=== PATIENT | male | born 1950 | race Caucasian/White ===

== ENCOUNTER 2021-05-12 20:11 | Observation (INO) | payer MEDICARE, SELFPAY ==
--- NOTE | ~2021-05-12 | US_ITS ---
EXAMINATION:US venous doppler LE BI INDICATION:Elevated d-dimer TECHNIQUE: Multiple grayscale, color flow and Doppler images of the right and left lower extremity de ep venous systems were obtained and reviewed. COMPARISON:No prior studies for comparison. FINDINGS: The common femoral, superficial femoral and popliteal veins demonstrate normal respiratory variation, augmentation and compressibility. Color flow is also seen within the posterior tibial, pe roneal, greater saphenous and profunda veins. IMPRESSION: 1: No lower extremity deep venous thrombosis. Reviewed, dictated and finalized at location A.
--- NOTE | ~2021-05-12 | CT_ITS ---
EXAMINATION: CT chest abdomen pelvis wo con EXAM DATE: 05/12/2021 23:03 INDICATION: Chest and abdominal pain, h/o IVP dye anaphylaxis. Shortness of breath, mid abdominal ten derness. TECHNIQUE: Spiral CT of the chest, abdomen and pelvis was performed without contrast. Axial, pabon l and sagittal images chest, abdomen and pelvis were reviewed. Coronal maximum intensity pixel image s of chest reviewed. The dose-length product (DLP) for this examination was 1754.69 mGy-cm. The exp osure was tailored according to patient size (auto mA exposure control), and iterative reconstruction (ASIR) was used as additional dose reduction technique. There is no prior study for comparison. FINDINGS: CHEST: Dependent right lower lobe groundglass opacity, subsegmental atelectasis. There are no pleur al or pericardial effusions. Tracheobronchial tree is patent. There is no mediastinal, hilar or a xillary lymphadenopathy. There is no pneumothorax. Heart normal in size. There is moderate radha nary arterial calcification, arterial sclerosis. ABDOMEN PELVIS: The liver, spleen, adrenal glands and pancreas are unremarkable. Gallbladder is unre markable. No biliary obstruction. There is punctate right mid calyceal stone. No hydronephrosis. T he prostate is unremarkable. The bladder is unremarkable. There is no retroperitoneal or pelvic lym phadenopathy. There is mild scattered arteriosclerotic disease. Small bilateral inguinal fat-contai chris hernias. The appendix is normal. There is moderate sigmoid diverticulosis, mild inflammation adjacent to one o f these with some focal wall thickening, likely mild uncomplicated acute diverticulitis. Although fin dings are more likely acute diverticulitis, inflammatory cancer can have a similar appearance. Theref ore recommend treating patient for acute diverticulitis and then obtaining a 2-4 week followup abdome n pelvis CT. Alternatively, if patient has not had recent colonoscopy, followup colonoscopy could be considered following treatment. The stomach and small bowel are unremarkable. There is expected amount of colonic stool. No free i ntraperitoneal gas. There are no osteoblastic or osteolytic lesions identified. IMPRESSION: 1. Focal region mild sigmoid inflammation more likely uncomplicated diverticulitis than inflammatory adenocarcinoma. Follow-up recommendation after treatment above. 2. Punctate right nephrolithiasis. 3. Small inguinal hernias. 4. Subsegmental atelectasis. Reviewed, dictated and finalized at location A. IMPRESSION: 1. Focal region mild sigmoid inflammation more likely uncomplicated diverticul itis than inflammatory adenocarcinoma. Follow-up recommendation after treatment above. 2. Punctate right nephrolithiasis. 3. Small inguinal hernias. 4. Subsegmental atelectasis.
--- NOTE | ~2021-05-12 | XR_ITS ---
XR chest 1V portable DATE: 05/14/2021 16:05 INDICATION: Chest pain, pressure, radiating to neck TECHNIQUE: Portable upright AP chest on 05/14/2021 at 1612 hours COMPARISON: 05/12/2021 CT chest abdomen pelvis 05/12/2021 2 view chest FINDINGS: Prominent calcified lower right paratracheal lymph nodes. Normal heart size. No hilar or mediastinal enlargement. Mild aortic unfolding. No pulmonary infiltrate or consolidation, pleural effusion or pulmonary vascular congestion or pneumo thorax. Resection of the lateral aspect of left clavicle. Osteopenia. IMPRESSION: No active cardiopulmonary disease Reviewed, dictated and finalized at location A.
--- NOTE | ~2021-05-12 | XR_ITS ---
EXAMINATION: XR chest 2V DATE: 05/12/2021 21:19 INDICATION: Midsternal chest pain TECHNIQUE: PA and lateral views of the chest were obtained. COMPARISON: None FINDINGS: Minimal linear discoid atelectasis at the lingula. No other airspace opacities, pulmonary edema, pleu ral effusion or pneumothorax. The cardiomediastinal silhouette is normal. Large calcified right parat sofia lymph node consistent with old granulomatous disease. Mild thoracic spondylosis. IMPRESSION: 1. Minimal discoid atelectasis at the lingula. No acute cardiopulmonary disease. Reviewed, dictated and finalized at location A. IMPRESSION: 1. Minimal discoid atelectasis at the lingula. No acute cardiopulmonary disease .
--- NOTE | ~2021-05-12 | NM_ITS ---
EXAMINATION: NM pulmonary perfusion DATE: 05/14/2021 13:41 INDICATION: Shortness of breath. Elevated d-dimer. TECHNIQUE: 4.77 mCi Tc-99m MAA was administered IV. Scintigraphic images of the chest were obtained. COMPARISON: None. FINDINGS: There is relatively homogeneous perfusion throughout the lungs. Photopenic defect at the right side o f the superior mediastinum resulting from a densely calcified right paratracheal lymph node consisten t with old granulomatous disease. No no other perfusion defects identified. IMPRESSION: 1. Low probability for pulmonary embolism. Reviewed, dictated and finalized at location A.
--- NOTE | 2021-05-12 20:35 | ECG_ITS ---
Measurements Intervals [place] Rate: 99 P: 21 PA: 177 QRS: 28 QRSD: 101 T: 16 QT: 338 QTc: 434 Interpretive Statements SINUS RHYTHM BASELINE ARTIFACT- I, II, III, AVR, AVL, V3 NORMAL ECG Electronically Signed On 05-13-2021 10:14:36 CDT by Willem Kenny D.O.
--- NOTE | 2021-05-12 20:45 | ED.CHESTPAIN ---
HPI - Chest Pain General Stated Complaint: Chest pain light headed Time Seen by Provider: 05/12/21 20:40 Source: patient and family Mode of arrival: ambulatory Limitations: other (Deaf. 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 communicated with sign lang with spouse who translated.) History of Present Illness HPI narrative: 70-year-old man comes in today complaining of chest pressure and difficulty catching his breath since 4:00 a.m. this afternoon. States that it started after taking some CBD that he bought at a gas station. He denies cough or cold symptoms, ankle swelling, vomiting, radiating pain, and syncope. MD complaint: chest pain
[2021-05-12 21:00] VITALS: BP 131/84; PULSE 97; RESP 20; TEMP 38.3; O2SAT 97
[2021-05-12 21:10] VITALS: PULSE 99
--- NOTE | 2021-05-12 21:11 | ED.CHESTPAIN ---
HPI - Chest Pain General Chief Complaint: Shortness of Breath/Dyspnea Stated Complaint: Chest pain light headed Time Seen by Provider: 05/12/21 21:22 Source: patient Mode of arrival: ambulatory Limitations: no limitations History of Present Illness HPI narrative: 70-year-old man comes in today complaining of 3 days of fever, vomiting, abdominal pain and chest pain with shortness of breath. He states that the abdominal pain has been constant and he has been and able to eat well. He denies diarrhea and denies sick contacts. He has had no cough or cold symptoms. Patient states that he has had intermittent chest pain over last 3 days and that he has chest pain quite often. States that he had episodes of chest pain 20 years ago for which he had a stress test. He denies calf pain and swelling, and has been having dizziness and lightheadedness. He is currently traveling the country with his dog. MD complaint: chest pain Onset (ago): day(s) (> 3 days) Timing of current episode: episodic and still present Prior episodes: Yes Onset: during rest and during exertion Pain location: substernal Pain radiation: none Severity: moderate Pain scale (0-10): 4 Quality: tightness Relieving factors: nothing Exacerbating factors: nothing Context: recent travel Associated symptoms: nausea, vomiting, dyspnea and fever Treatment prior to arrival: none Risk Factors Coronary artery disease risk factors: hyperlipidemia Related Data Home Medications Medication Instructions Recorded Confirmed eszopiclone 3 mg PO HS 05/12/21 05/12/21 simvastatin 20 mg PO DAILY 05/12/21 05/12/21 trazodone 75 mg PO DAILY 05/12/21 05/12/21 Allergies Allergy/AdvReac Type Severity Reaction Status Date / Time bee venom protein (honey bee) AdvReac Itching Verified 05/12/21 21:19 [bees] iv contrast Allergy Unknown Uncoded 05/12/21 21:19 Review of Systems Constitutional: Constitutional: Denies chills, Reports fatigue and Reports fever(s) Eyes: Eyes: Denies change in vision and Denies photophobia ENT: Denies dysphagia, Denies nasal congestion and Denies sore throat Cardiovascular: Cardiovascular: Reports chest pain and Denies radiating jaw, neck or arm pain Respiratory: Respiratory: Denies cough and Reports dyspnea Gastrointestinal: Gastrointestinal: Reports abdominal pain, Denies diarrhea, Reports nausea and Reports vomiting Genitourinary: Genitourinary: Denies hematuria, Denies dysuria and Denies urinary frequency Musculoskeletal: Musculoskeletal: Denies arthralgias and Denies joint swelling Integumentary/Breasts: Skin/Breast: Denies pruritus, Denies erythema and Denies rash Neurologic: Denies vertigo, Reports dizziness and Denies syncope Allergic/Immunologic: Allergic/Immunologic: Denies lip swelling and Denies throat swelling PMFSH Past Medical History Medical History (Updated 05/13/21 @ 00:27 by Trace Stephenson MD) Hyperlipidemia Insomnia Social History Social History (Updated 05/13/21 @ 00:22 by Trace Stephenson MD) Smoking status: Former smoker Alcohol intake: current Alcohol use details: occasional Substance use: never Living arrangements: alone Exam Const: General: healthy appearing, no acute distress and alert Orientation/consciousness: patient oriented x3 Limitations: no limitations HENMT: Head: normal to inspection Ears: external ears normal General nose exam: Normal nares present Face and sinus: normal facial exam Mouth: Yes moist mucous membranes Throat: posterior oropharynx normal Eyes: Conjunctivae: conjunctivae normal Pupils: Equal, round and reactive pupils present Neck: Neck: normal visual inspection and no lymphadenopathy Resp: Effort & Inspection: normal respiratory effort and not labored Auscultation: clear to auscultation bilaterally, no rales, no rhonchi and no wheezes Cardio: Rate: regular rate Rhythm: regular rhythm Heart sounds: no murmurs GI: GI Palp: Yes Soft to palpation
[2021-05-12] MEDS: ASPIRIN 81 MG CHEWABLE TABLET 324 MG PO (21:45)
[2021-05-12] MEDS: MAG HYDROX/ALUMINUM HYD/SIMETH 30 ML, PHENobarb/HYOSCY/ATROPINE/SCOP 32.4 MG, LIDOCAINE... PO (21:49)
[2021-05-12] MEDS: NITROGLYCERIN SL 0.4 MG TABLET SUBLINGUAL (21:58)
[2021-05-12 22:12] LABS: Basophils Absolute Auto 0.02 K/mm3 (0.00-0.10); Basophils Percent Auto 0.4 % (0.0-1.0); Eosinophils Absolute Auto 0.02 K/mm3 (0.02-0.50); Eosinophils Percent Auto 0.4 % (1.0-6.0); Hematocrit 40.9 % (37.0-46.0); Hemoglobin 13.7 g/dL (12.4-15.3); Immature Granulocyte Absolute 0.02 K/mm3 (0.00-0.00); Immature Granulocyte Percent A 0.4 % (0.0-0.0); Lymphocytes Absolute Auto 1.49 K/mm3 (1.10-4.50); Lymphocytes Percent Auto 27.6 % (18.0-42.0); Mean Corpuscular HGB Conc 33.5 g/dL (32.0-36.0); Mean Corpuscular Hemoglobin 29.2 pg (27.0-31.0); Mean Corpuscular Volume 87.2 fL (78.0-102.0); Mean Platelet Volume 8.7 fl (8.7-11.0); Monocytes Absolute Auto 0.78 K/mm3 (0.10-0.90); Monocytes Percent Auto 14.5 % (2.0-11.0); Neutrophils Absolute Auto 3.1 K/mm3 (1.7-7.2); Neutrophils Percent Auto 56.7 % (50.0-70.0); Platelet Count Result 223 K/mm3 (150-420); Red Blood Count 4.69 M/mm3 (4.70-6.10); Red Cell Distribution Width 12.6 % (11.6-14.4); White Blood Count 5.4 K/mm3 (4.8-10.8)
[2021-05-12 22:19] LABS: CRP 2.7 mg/dL (0.0-0.9)
[2021-05-12 22:28] LABS: Lactic Acid Reflex 1.2 mmol/L (0.4-2.0)
[2021-05-12 22:32] LABS: Influenza Control Valid (Valid)
[2021-05-12 22:33] LABS: Alanine Aminotransferase 39 U/L (16-63); Albumin Level 3.8 g/dL (3.4-5.0); Alkaline Phosphatase 67 U/L (46-116); Anion Gap 8 mmol/L (8-16); Aspartate Amino Transferase 23 U/L (15-37); Bilirubin,Total 0.6 mg/dL (0.00-1.00); Blood Urea Nitrogen 19 mg/dL (7-18); Calcium 8.7 mg/dL (8.5-10.1); Carbon Dioxide 29 mmol/L (21-32); Chloride 99 mmol/L (98-108); Estimated CRCL calculation 71 ml/min; Estimated Glomerular Filt Rate 57; Glucose 121 mg/dL (70-99); Lipase 66 U/L (73-393); NT Pro B Type Natriuretic Pept 142 pg/mL (0-125); Osmolality Calculated 285 mOsm/kg (285-295); Potassium 3.9 mmol/L (3.5-5.1); Sodium 136 mmol/L (136-145); Total Protein 7.1 g/dL (6.4-8.2); Troponin I 6.5 ng/L (0.00-60.4)
[2021-05-12 22:36] LABS: INR 1.1; Partial Thromboplastin Time 27.1 SEC (23.90-30.70); Prothrombin Time 11.5 Seconds (9.50-12.10)
[2021-05-12 22:41] LABS: Appearance Urine Clear (Clear); Bilirubin Urine 1+ (Negative); Blood Urine 3+ (Negative); Glucose Urine UA Negative (Negative); Ketones Urine Negative (Negative); Leukocyte Esterase Ur Negative (Negative); Nitrate Urine Negative (Negative); Protein Urine Trace (Negative); Specific Grav Ur >= 1.030 (1.010-1.020); pH Urine 5.5 (5.0-8.0)
[2021-05-12] MEDS: SODIUM CHLORIDE 0.9% IV 1,000 ML 999 ML IV CONT (22:44)
[2021-05-12 22:45] VITALS: BP 121/83; PULSE 92; RESP 18; O2SAT 94
[2021-05-12 22:46] LABS: Add Urine Microscopic? YES; Color Urine Dark Yellow (Yellow)
[2021-05-12 22:47] LABS: Bacteria Urine Trace /hpf; Mucus Urine Moderate /lpf; Squamous Epithelial Cell Urine Rare /hpf (Few); WBC Urine None seen /hpf (0-3)
[2021-05-12 22:58] LABS: SARS-CoV-2 RNA PCR Negative (Negative)
[2021-05-13] VITALS (10 sets, daily range): BP systolic 115–136; BP diastolic 52–93; PULSE 72–92; RESP 18–20; TEMP 36.6–37.9; O2SAT 94–97; BMI 33.0
--- NOTE | 2021-05-13 00:45 | ADMGEN ---
This patient, Mj Suero, was admitted to 2nd Floor Room 203-1. Patient oriented to hospital policies and general routines including ID bracelet, bed and alarms, visiting hours, pain management, procedures, bathroom and other care routines, personal items, smoking policy, room service/diet, and visiting hours. Information on how to activate the Rapid Response Team has been discussed. Patient/Family are encouraged to report perceived risks to care and to ask questions if they do not understand what they are told or what they should do.
--- NOTE | 2021-05-13 01:02 | PC.NURSE ---
Placed on telemetry, SR noted, no ectopics, given water to drink, no n/v noted
[2021-05-13] MEDS: SODIUM CHLORIDE 0.9% IV 1,000 ML 100 ML IV CONT ×3 (01:21→23:20)
[2021-05-13 02:08] LABS: Troponin I 8.3 ng/L (0.00-60.4)
--- NOTE | 2021-05-13 02:40 | PC.NURSE ---
Warm blanket given
--- NOTE | 2021-05-13 04:25 | PC.NURSE ---
Fluids infusing, no pain, telemetry SR, no n/v
--- NOTE | 2021-05-13 04:58 | PC.NURSE ---
Fluids infusing, no n/v, no pain, telemetry SR
[2021-05-13 05:59] LABS: Hematocrit 37.5 % (37.0-46.0); Hemoglobin 12.7 g/dL (12.4-15.3); Mean Corpuscular HGB Conc 33.9 g/dL (32.0-36.0); Mean Corpuscular Hemoglobin 29.7 pg (27.0-31.0); Mean Corpuscular Volume 87.8 fL (78.0-102.0); Mean Platelet Volume 8.4 fl (8.7-11.0); Platelet Count Result 192 K/mm3 (150-420); Red Blood Count 4.27 M/mm3 (4.70-6.10); Red Cell Distribution Width 12.4 % (11.6-14.4); White Blood Count 5.2 K/mm3 (4.8-10.8)
[2021-05-13 06:17] LABS: Alanine Aminotransferase 32 U/L (16-63); Albumin Level 3.2 g/dL (3.4-5.0); Alkaline Phosphatase 58 U/L (46-116); Anion Gap 7 mmol/L (8-16); Aspartate Amino Transferase 20 U/L (15-37); Bilirubin,Total 0.5 mg/dL (0.00-1.00); Blood Urea Nitrogen 18 mg/dL (7-18); Calcium 8.4 mg/dL (8.5-10.1); Carbon Dioxide 29 mmol/L (21-32); Chloride 102 mmol/L (98-108); Estimated CRCL calculation 80 ml/min; Estimated Glomerular Filt Rate > 60; Glucose 108 mg/dL (70-99); Osmolality Calculated 288 mOsm/kg (285-295); Potassium 3.8 mmol/L (3.5-5.1); Sodium 138 mmol/L (136-145); Total Protein 6.2 g/dL (6.4-8.2); Troponin I 8.3 ng/L (0.00-60.4)
[2021-05-13 06:25] LABS: Total Cells Counted 100
[2021-05-13 06:26] LABS: Band Neutrophils Percent 1 % (0-6); Basophils Percent Manual 0 % (0-1); Eosinophils Absolute Manual 0.05 K/mm3 (0.02-0.5); Eosinophils Percent Manual 1 % (1-6); Lymphocytes Absolute Manual 1.19 K/mm3 (1.1-4.5); Lymphocytes Percent Manual 23 % (18-44); Monocytes Absolute Manual 0.72 K/mm3 (0.1-0.90); Monocytes Percent Manual 14 % (3-9); Neutrophils Absolute Manual 3.22 K/mm3 (1.3-6.7); Neutrophils Percent Manual 61 % (46-73); Platelet Estimate Adequate (Adequate)
--- NOTE | 2021-05-13 06:38 | PC.NURSE ---
fluids infusing, no emesis, no chest pain
--- NOTE | 2021-05-13 07:20 | PC.NURSE ---
Pt. up sitting bedside upon arrival for assessment. Pt. c/o slight H/A and nauseated. Pt. given meds for sxs as per orders. Pt. denies any C/P or SOB. Temp noted 100.2 on exam this am. Hospitalist informed, orders received.
[2021-05-13] MEDS: ONDANSETRON INJ 4 MG/2 ML VIAL IV PUSH ×2 (07:21→19:48)
[2021-05-13] MEDS: ACETAMINOPHEN 325 MG TABLET 650 MG PO ×2 (07:23→19:49)
[2021-05-13] MEDS: traZODone HCL 25 MG TABLET 75 MG PO (08:39)
[2021-05-13] MEDS: SIMVASTATIN 10 MG TABLET 20 MG PO (08:39)
--- NOTE | 2021-05-13 10:08 | PM.IMHP ---
H&P: HPI History of Present Illness Date/Time: 05/13/21 10:08 Mj Suero is a 70 year old male who came to the hospital after 3 days of abdominal pain located primarily in the middle of his abdomen. He did have some episodes of vomiting which is currently resolved. Pt was also having some chest pain as well and this has resolved this AM along with his abdominal pain. He states the abdominal pain/CP was an 11/10. Pt admits that his right leg becomes swollen at times. Pt has been traveling around in his camper for a while. Pt states that he was also having some SOB which has resolved this AM. He did feel feverish and had temp this AM. Pt denies any other issues at this time. PMHx of Insomnia and Hyperlipidemia, non-smoker with occasional EtOH use. Chief Complaint: N/V, Abdominal pain, SOB, CP Review of Systems Review of Systems: All systems reviewed & are unremarkable except as noted in HPI and below PMFSH Past Medical History Medical History Hyperlipidemia Insomnia Family History Family History Grandparent Prostate carcinoma Mother Parkinson disease Social History Social History Smoking status: Never smoker Alcohol intake: current Drinks per week: 0 Alcohol use details: occasional Substance use: never Substance use type: does not use Living arrangements: alone Gender identity (if verbalized by the patient): Male Spiritual care concerns: No Meds Home Medications and Allergies Home Medications Medication Instructions Recorded Confirmed Type eszopiclone 3 mg PO HS 05/12/21 05/12/21 History simvastatin 20 mg PO DAILY 05/12/21 05/12/21 History trazodone 75 mg PO DAILY 05/12/21 05/12/21 History Allergies Allergy/AdvReac Type Severity Reaction Status Date / Time Iodinated Contrast Media Allergy Unknown Verified 05/13/21 08:09 bee venom protein (honey bee) AdvReac Itching Verified 05/12/21 21:19 [bees] Vital Signs Vital Signs - 24 hr 05/12/21 21:00 05/12/21 21:10 06/12/21 22:45 Temperature 100.9 F H Pulse Rate 97 99 92 Respiratory Rate 20 18 Blood Pressure 131/84 121/83 Pulse Oximetry 97 94 05/13/21 00:20 05/13/21 00:35 05/13/21 04:00 Temperature 99.3 F 99.8 F H 99 F Pulse Rate 84 86 86 Respiratory Rate 20 18 18 Blood Pressure 132/84 136/93 H 118/52 L Pulse Oximetry 96 95 95 05/13/21 07:23 05/13/21 07:26 05/13/21 08:46 Temperature 100.2 F H 100.2 F H 98.2 F Pulse Rate 92 Respiratory Rate 20 Blood Pressure 127/86 Pulse Oximetry 95 Exam Const: General: cooperative, healthy appearing, comfortable, no acute distress, well developed, alert, awake and Physically active Nutritional Appearance: obese HENMT: Head: normal to inspection and normocephalic Ears: hearing grossly normal bilaterally Neck: Neck: normal visual inspection and no JVD Resp: Effort & Inspection: normal respiratory effort Auscultation: clear to auscultation bilaterally Cardio: Rate: regular rate Heart sounds: S1 normal heart sound present and S2 normal heart sound present GI: GI Palp: Yes Soft to palpation, No Tenderness to palpation present (GI), No Guarding due to palpation present (GI) and Yes No hepatosplenomegaly present Auscultation: normal bowel sounds Skin: General skin exam: normal color and dry skin Neuro: General: oriented to person, oriented to place and oriented to time Cranial nerves: Yes CN's II-XII intact bilaterally (grossly intact) Extrem: Right lower extremity: normal to inspection, full ROM and edema Details: pitting and 1+ Left lower extremity: normal to inspection and full ROM; no edema Psych: Appearance: grossly normal Mental Status: mental status grossly normal Speech and movement: Normal speech and movement present Affect: normal affect Attitude: cooperative H&P: Results La
[2021-05-13] MEDS: IBUPROFEN 400 MG TABLET 800 MG PO (11:35)
--- NOTE | 2021-05-13 11:35 | PC.NURSE ---
Pt. c/o H/A still that never completely went away. Order obtained for Ibuprofen.
--- NOTE | 2021-05-13 13:56 | PC.NURSE ---
Pt. sitting in bed watching TV, no c/o at this time. Call beck in reach.
[2021-05-13] MEDS: metroNIDAZOLE 250 MG TABLET 500 MG PO ×2 (14:53→21:21)
--- NOTE | 2021-05-13 19:20 | PC.NURSE ---
Addendum entered by Hayden Nobles RN 05/14/21 06:02: Patient also experienced chills, hot/cold flashes. Original Note: Patient laying in bed w/no c/o of stomach issues but did c/o headache.
--- NOTE | 2021-05-13 20:10 | PC.NURSE ---
Addendum entered by Hayden Nobles RN 05/14/21 06:04: no c/o chills Original Note: Patient given tylenol for headache and effective but 99.1 low grade temp noted.
[2021-05-14] VITALS (7 sets, daily range): BP systolic 113–123; BP diastolic 73–81; PULSE 80–105; RESP 16–18; TEMP 37.2–38.2; O2SAT 94–98
--- NOTE | 2021-05-14 00:05 | PC.NURSE ---
Patient resting comfortably in bed at this time vitals taken q4h w/99.3 low grade temp.
--- NOTE | 2021-05-14 04:15 | PC.NURSE ---
Addendum entered by Hayden Nobles RN 05/14/21 06:04: No c/o chills or hot/cold flashes at this time. Original Note: Patient resting comfortably in bed vitals taken and noted 100.1 temp at this time. No c/o stomach issues but did c/o of headache. Tylenol given as ordered.
[2021-05-14] MEDS: metroNIDAZOLE 250 MG TABLET 500 MG PO ×3 (05:20→21:29)
[2021-05-14 05:32] LABS: Hematocrit 37.6 % (37.0-46.0); Hemoglobin 12.6 g/dL (12.4-15.3); Mean Corpuscular HGB Conc 33.5 g/dL (32.0-36.0); Mean Corpuscular Hemoglobin 29.4 pg (27.0-31.0); Mean Corpuscular Volume 87.6 fL (78.0-102.0); Mean Platelet Volume 8.7 fl (8.7-11.0); Platelet Count Result 184 K/mm3 (150-420); Red Blood Count 4.29 M/mm3 (4.70-6.10); Red Cell Distribution Width 12.2 % (11.6-14.4); White Blood Count 5.2 K/mm3 (4.8-10.8)
[2021-05-14] MEDS: ACETAMINOPHEN 325 MG TABLET 650 MG PO (05:39)
[2021-05-14 05:40] LABS: Anion Gap 9 mmol/L (8-16); Blood Urea Nitrogen 14 mg/dL (7-18); Calcium 8.1 mg/dL (8.5-10.1); Carbon Dioxide 28 mmol/L (21-32); Chloride 100 mmol/L (98-108); Estimated CRCL calculation 85 ml/min; Estimated Glomerular Filt Rate > 60; Glucose 113 mg/dL (70-99); Osmolality Calculated 285 mOsm/kg (285-295); Sodium 137 mmol/L (136-145)
--- NOTE | 2021-05-14 08:37 | PM.DS ---
DS: Admitting Diagnosis Admitting Diagnosis Admitting Diagnosis: Diverticulitis, Chest Pain DS: Discharge Diagnosis Discharge Diagnosis (1) Diverticulitis: Code(s): K57.92 - Diverticulitis of intestine, part unspecified, without perforation or abscess without bleeding Status: Acute Assessment and Plan: Pt started on Clear Liquids, tolerating well, Zosyn with renal dosing, Pain medication as needed, no pain today, likely DC with PO Ab in AM, Pt needs VQ scan as well as US of LE to rule out PE/DVT, Tylenol for Fevers 05/14/2021 increase to a Heart Healthy diet, minimal pain, informed Pt about radiologist report regarding possibility of inflammatory cancer and the need to have a f/u Abd/Pel CT in 2-3 weeks, will DC with Levaquin and Metronidazole for 10 day course. (2) Chest pain: Qualifiers: Chest pain type: precordial pain Qualified Code(s): R07.2 - Precordial pain Code(s): R07.9 - Chest pain, unspecified Status: Acute Assessment and Plan: This has resolved today, Troponin series 6.5, 8.3, 8.3, Morphine PRN, Nitro PRN, Cardiac Monitoring with NSR, monitor VS 05/14/2021 No chest pain today (3) Elevated d-dimer: Code(s): R79.89 - Other specified abnormal findings of blood chemistry Status: Acute Assessment and Plan: D-Dimer was 0.8 and Pt was SOB yesterday which is resolved today, Pt has IV contrast allergy, VQ scan ordered for tomorrow, Anticoagulation not started when admitted d/t potential Diverticulitis and bleed, currently RA with SpO2 95% or better. 05/14/2021 No DVT found, low probability for PE (4) Vomiting: Qualifiers: Nausea presence: with nausea Vomiting Intractability: non-intractable Vomiting type: unspecified Qualified Code(s): R11.2 - Nausea with vomiting, unspecified Code(s): R11.10 - Vomiting, unspecified Status: Acute Assessment and Plan: Pt has not vomited overnight and this AM, has Zofran PRN 05/14/2021 No complaints of nausea or vomiting today, tolerating his liquids and advanced to heart healthy diet (5) Insomnia: Code(s): G47.00 - Insomnia, unspecified Status: Acute Assessment and Plan: Pts Eszopiclone is not in our formulary, Ambien 10 mg ordered for HS 05/14/2021 No issues sleeping last night (6) Hyperlipidemia: Code(s): E78.5 - Hyperlipidemia, unspecified Status: Acute Assessment and Plan: Continue Simvastatin DS: Summary Hospital Course Hospital Course: Pt tolerating PO food and fluids and has minimal abdominal discomfort. Time Spent with Patient Time attestation: Total time spent providing and/or coordinating discharge services: < 30 minutes Exam Const: General: cooperative, comfortable, no acute distress, alert, awake and Physically active Nutritional Appearance: overweight HENMT: Head: other (has MELVIN, drinks a pot of coffee a day) Resp: Effort & Inspection: normal respiratory effort and no cough Cardio: Rate: regular rate GI: Inspection: no edema GI Palp: Yes Soft to palpation, Yes Tenderness to palpation present (GI) (Pt states slight when palpating), No Guarding due to palpation present (GI) and Yes No hepatosplenomegaly present Auscultation: normal bowel sounds Skin: General skin exam: normal color and dry skin Neuro: General: oriented to person, oriented to place and oriented to time Cranial nerves: Yes CN's II-XII intact bilaterally (grossly intact) Cognition (Neuro): normal cognition Speech: normal speech Extrem: Right lower extremity: edema Details: pitting and 1+ Left lower extremity: no edema Psych: Appearance: grossly normal Mental Status: mental status grossly normal Speech and movement: Normal speech and movement present Affect: normal affect Attitude: cooperative Thought process: Normal thought process present DS: Data Data Completed and Pending Labs on day of discharge: Labs from last 24 hours 05/14/21 05/14/21 05:08 05:08 WBC
[2021-05-14] MEDS: SIMVASTATIN 10 MG TABLET 20 MG PO (09:12)
--- NOTE | 2021-05-14 15:05 | PC.NURSE ---
Patient reporting chest pressure midsternal. States it is more pressure and not pain. Patient reported having indegestions and bloating today as well. FOREIGN LANGUAGE INSTRUCTOR Jayy notified. Received orders for STAT EKG, trop, Chest x-ray, 4x 81mg ASA chewable, and to give PRN Morphine.
--- NOTE | 2021-05-14 15:10 | ECG_ITS ---
Measurements Intervals [place] Rate: 80 P: 34 UT: 185 QRS: 57 QRSD: 106 T: 18 QT: 379 QTc: 437 Interpretive Statements SINUS RHYTHM NONSPECIFIC T-WAVE ABNORMALITY- INF/LAT LEADS BASELINE WANDER- V1, V3 BORDERLINE ECG Electronically Signed On 05-14-2021 16:09:52 CDT by Willem Kenny D.O.
[2021-05-14] MEDS: ONDANSETRON INJ 4 MG/2 ML VIAL IV PUSH (15:20)
[2021-05-14] MEDS: ASPIRIN 81 MG CHEWABLE TABLET 324 MG PO (15:27)
--- NOTE | 2021-05-14 15:31 | PM.IMPN ---
Progress Note: A&P Assessment and Plan (1) Diverticulitis: Code(s): K57.92 - Diverticulitis of intestine, part unspecified, without perforation or abscess without bleeding Status: Acute Assessment and Plan: Pt started on Clear Liquids, tolerating well, Zosyn with renal dosing, Pain medication as needed, no pain today, likely DC with PO Ab in AM, Pt needs VQ scan as well as US of LE to rule out PE/DVT, Tylenol for Fevers 05/14/2021 increase to a Heart Healthy diet, minimal pain, informed Pt about radiologist report regarding possibility of inflammatory cancer and the need to have a f/u Abd/Pel CT in 2-3 weeks, will DC with Levaquin and Metronidazole for 10 day course. (2) Chest pain: Qualifiers: Chest pain type: precordial pain Qualified Code(s): R07.2 - Precordial pain Code(s): R07.9 - Chest pain, unspecified Status: Acute Assessment and Plan: This has resolved today, Troponin series 6.5, 8.3, 8.3, Morphine PRN, Nitro PRN, Cardiac Monitoring with NSR, monitor VS 05/14/2021 No chest pain today (3) Elevated d-dimer: Code(s): R79.89 - Other specified abnormal findings of blood chemistry Status: Acute Assessment and Plan: D-Dimer was 0.8 and Pt was SOB yesterday which is resolved today, Pt has IV contrast allergy, VQ scan ordered for tomorrow, Anticoagulation not started when admitted d/t potential Diverticulitis and bleed, currently RA with SpO2 95% or better. 05/14/2021 No DVT found, low probability for PE (4) Vomiting: Qualifiers: Nausea presence: with nausea Vomiting Intractability: non-intractable Vomiting type: unspecified Qualified Code(s): R11.2 - Nausea with vomiting, unspecified Code(s): R11.10 - Vomiting, unspecified Status: Acute Assessment and Plan: Pt has not vomited overnight and this AM, has Zofran PRN 05/14/2021 No complaints of nausea or vomiting today, tolerating his liquids and advanced to heart healthy diet (5) Insomnia: Code(s): G47.00 - Insomnia, unspecified Status: Acute Assessment and Plan: Pts Eszopiclone is not in our formulary, Ambien 10 mg ordered for HS 05/14/2021 No issues sleeping last night (6) Hyperlipidemia: Code(s): E78.5 - Hyperlipidemia, unspecified Status: Acute Assessment and Plan: Continue Simvastatin Subjective Date/time seen: 05/14/21 15:31 Pt was doing well this AM and was ready to be discharged after the results of his LE US and VQ scan. At the time of discharge Pt complained of chest pain in the middle of his sternum radiating to his neck. Pain was a pressure sensation at a level of 3-4/10 with no palliative or provoking causes. Pt has NO SOB, no N/V. Morphine, ASA, Chest image, troponin series ordered. Pt will not be discharged home as originally planned but stay overnight for observation of this chest pain that appeared to have resolved until last minute at discharge. Review of Systems Review of Systems: All systems reviewed & are unremarkable except as noted in HPI and below Cardiovascular: Cardiovascular: Reports chest pain (3-4/10 radiating to the neck) Respiratory: Respiratory: Reports no additional respiratory complaints Exam Const: General: cooperative, healthy appearing, comfortable, no acute distress, well developed, alert, awake and Physically active Nutritional Appearance: overweight Orientation/consciousness: oriented to person, oriented to place and oriented to time HENMT: Head: normal to inspection, normocephalic and other (has MELVIN, drinks a pot of coffee a day) Ears: hearing grossly normal bilaterally Neck: Neck: normal visual inspection and no JVD Resp: Effort & Inspection: normal respiratory effort and no cough Auscultation: clear to auscultation bilaterally Cardio: Jugular venous distension: no JVD Rate: regular rate Heart sounds: S1 normal heart sound present and S2 normal heart sound present Bruits: no carotid bruits Other:
[2021-05-14] MEDS: MORPHINE SULFATE (*CRX) 2 MG/ML INJ IV PUSH (15:42)
[2021-05-14 16:15] LABS: Troponin I 7.5 ng/L (0.00-60.4)
--- NOTE | 2021-05-14 16:15 | PC.NURSE ---
Patient vital signs remain stable. Patient reports symptoms have been relieved with medicaiton. Denies any pressure/chest pain at present.
[2021-05-14 20:34] LABS: Troponin I 7.5 ng/L (0.00-60.4)
--- NOTE | 2021-05-14 20:34 | PC.NURSE ---
Patient laying in bed this evening w/no c/o pain or discomfort at this time. No adverse reactions to IV ABT noted.
[2021-05-14] MEDS: traZODone HCL 25 MG TABLET 75 MG PO (21:30)
[2021-05-15] MEDS: metroNIDAZOLE 250 MG TABLET 500 MG PO (05:27)
[2021-05-15 06:14] LABS: Hematocrit 37.4 % (37.0-46.0); Hemoglobin 12.4 g/dL (12.4-15.3); Mean Corpuscular HGB Conc 33.2 g/dL (32.0-36.0); Mean Corpuscular Hemoglobin 28.9 pg (27.0-31.0); Mean Corpuscular Volume 87.2 fL (78.0-102.0); Mean Platelet Volume 8.7 fl (8.7-11.0); Platelet Count Result 208 K/mm3 (150-420); Red Blood Count 4.29 M/mm3 (4.70-6.10); Red Cell Distribution Width 12.3 % (11.6-14.4); White Blood Count 4.8 K/mm3 (4.8-10.8)
[2021-05-15 06:26] LABS: Anion Gap 5 mmol/L (8-16); Blood Urea Nitrogen 17 mg/dL (7-18); Calcium 8.4 mg/dL (8.5-10.1); Carbon Dioxide 31 mmol/L (21-32); Chloride 102 mmol/L (98-108); Estimated CRCL calculation 86 ml/min; Estimated Glomerular Filt Rate > 60; Glucose 112 mg/dL (70-99); Osmolality Calculated 288 mOsm/kg (285-295); Potassium 3.6 mmol/L (3.5-5.1); Sodium 138 mmol/L (136-145)
[2021-05-15 07:25] VITALS: BP 122/84; PULSE 77; RESP 18; TEMP 37.1; O2SAT 95
--- NOTE | 2021-05-15 07:42 | PM.DS ---
DS: Admitting Diagnosis Admitting Diagnosis Admitting Diagnosis: Admitting diagnosis diverticulitis DS: Discharge Diagnosis Discharge Diagnosis (1) Diverticulitis: Code(s): K57.92 - Diverticulitis of intestine, part unspecified, without perforation or abscess without bleeding Status: Acute Assessment and Plan: Pt started on Clear Liquids, tolerating well, Zosyn with renal dosing, Pain medication as needed, no pain today, likely DC with PO Ab in AM, Pt needs VQ scan as well as US of LE to rule out PE/DVT, Tylenol for Fevers 05/14/2021 increase to a Heart Healthy diet, minimal pain, informed Pt about radiologist report regarding possibility of inflammatory cancer and the need to have a f/u Abd/Pel CT in 2-3 weeks, will DC with Levaquin and Metronidazole for 10 day course. Plan unchanged from previous discharge (2) Chest pain: Qualifiers: Chest pain type: precordial pain Qualified Code(s): R07.2 - Precordial pain Code(s): R07.9 - Chest pain, unspecified Status: Acute Assessment and Plan: This has resolved today, Troponin series 6.5, 8.3, 8.3, Morphine PRN, Nitro PRN, Cardiac Monitoring with NSR, monitor VS 05/14/2021 No chest pain today Apparently patient did not discharge yesterday due to chest pains, his troponins are negative x4 Not believed to be cardiac related possibly GI related Patient will discharge home with Protonix (3) Elevated d-dimer: Code(s): R79.89 - Other specified abnormal findings of blood chemistry Status: Acute Assessment and Plan: D-Dimer was 0.8 and Pt was SOB yesterday which is resolved today, Pt has IV contrast allergy, VQ scan ordered for tomorrow, Anticoagulation not started when admitted d/t potential Diverticulitis and bleed, currently RA with SpO2 95% or better. 05/14/2021 No DVT found, low probability for PE (4) Vomiting: Qualifiers: Nausea presence: with nausea Vomiting Intractability: non-intractable Vomiting type: unspecified Qualified Code(s): R11.2 - Nausea with vomiting, unspecified Code(s): R11.10 - Vomiting, unspecified Status: Acute Assessment and Plan: Pt has not vomited overnight and this AM, has Zofran PRN 05/14/2021 No complaints of nausea or vomiting today, tolerating his liquids and advanced to heart healthy diet (5) Insomnia: Code(s): G47.00 - Insomnia, unspecified Status: Acute Assessment and Plan: Pts Eszopiclone is not in our formulary, Ambien 10 mg ordered for HS 05/14/2021 No issues sleeping last night (6) Hyperlipidemia: Code(s): E78.5 - Hyperlipidemia, unspecified Status: Acute Assessment and Plan: Continue Simvastatin DS: Summary Hospital Course Reason for hospitalization: Abdominal pain, shortness of breath, diverticulitis Hospital Course: Mj Suero is a 70 year old male who came to the hospital after 3 days of abdominal pain, vomiting and chest pain. n. He states the abdominal pain/CP was an 10/10. Pt admits that his right leg becomes swollen at times. Patient CT indicate diverticulitis patient treated with Flagyl and Zosyn will discharge home with Levaquin and Flagyl for [address] also indicates inflammatory adenocarcinoma. Patient will need to follow-up with his primary physician . Patient D-dimer was elevated VQ scan negative for PE Doppler does not indicate a DVT. Patient was scheduled for discharge yesterday but started experiencing chest pain. His troponin and EKG was negative. The patient denies SOB, CP, palpitation, extremity numbness, lightheadedness, dizziness, constipation, diarrhea, chills, or fever. Patient will discharge today and follow-up with his primary care physician. . PMHx of Insomnia and Hyperlipidemia, non-smoker with occasional EtOH use. Chief Complaint: N/V, Abdominal pain, SOB, CP Time Spent with Patient Time attestation: Total time spent providing and/or coordinating discharge services: Exam Narrative: Exam
[2021-05-15] MEDS: SIMVASTATIN 10 MG TABLET 20 MG PO (08:40)
[2021-05-15] MEDS: PANTOPRAZOLE 40 MG TABLET PO (08:40)
[2021-05-15 12:00] VITALS: BP 124/80; PULSE 86; RESP 18; TEMP 36.6; O2SAT 96
--- NOTE | 2021-05-15 12:55 | PC.NURSE ---
Patient to be discharged home. Patient aware. All discharge instructions and education reviewed with patient. Patient stated understanding. Denies any questions at this time. IV site removed, tip intact. Dressing applied to site. All belongings gathered together and sent home with patient. Patient left floor ambulatory accompanied by this nurse. Left facility via private vehicle.
--- NOTE | 2021-05-16 09:40 | PC.NURSE ---
Pt states he received and understood his discharge instructions. He also states I'm thankful for the care I got there .
== END 2021-05-15 12:55 | disposition home or self-care (01) ==
LOC: CHSED 21:04 → CHS2ND 05-13 00:27
PROVIDERS: Nurse Practitioner Family; Admitting Provider Emergency Medicine; Emergency Provider Emergency Medicine; Visit Provider Emergency Medicine
DX: K57.32 Diverticulitis of large intestine without perforation or abscess without bleeding (principal); R07.9 Chest pain, unspecified; E78.5 Hyperlipidemia, unspecified; G47.00 Insomnia, unspecified; Z87.891 Personal history of nicotine dependence; Z20.822 Contact with and (suspected) exposure to COVID-19
CPT/HCPCS: 36415; 71045; 71046; 71250; 74176; 78580; 80048; 80053; 81001; 83605; 83690; 83735; 83880; 84484; 85025; 85027; 85380; 85610; 85730; 86140; 87040; 87804; 93005; 93970; 96361; 96365; 96366; 96375; 96376; 99285; A9270; A9540; C9803; G0378; J2270; J2405; J2543; J7030; U0003; U0005